=== PATIENT | female | born 1965 | race Caucasian/White ===

== ENCOUNTER 2022-03-11 11:36 | Outpatient (CLI) | payer BC ==
[~2022-03-11 11:36] MED LIST: Gadobenate Dimeglumine 529 MG/1 ML (20ML VIAL) ONE
== END 2022-03-11 11:37 | disposition home or self-care (01) ==
LOC: CSHMRI 11:36
PROVIDERS: ATTEND Family Medicine
DX: R42 Dizziness and giddiness (principal); R51.9 Headache, unspecified; I65.22 Occlusion and stenosis of left carotid artery
CPT/HCPCS: 70553; 93880; A9577